=== PATIENT | male | born 1990 | race Caucasian/White ===

== ENCOUNTER → 2016-10-16 | Outpatient (CLI) | payer BC | LOC: MW.LAB 08:30 | PROVIDERS: ATTEND Internal Medicine | DX: N18.4 Chronic kidney disease, stage 4 (severe) (principal); E87.2 Acidosis; N11.9 Chronic tubulo-interstitial nephritis, unspecified; N13.9 Obstructive and reflux uropathy, unspecified | CPT/HCPCS: 36415; 80069; 85027 ==

== ENCOUNTER → 2016-12-11 | Outpatient (CLI) | payer BC | LOC: MW.LAB 09:18 | PROVIDERS: ATTEND Internal Medicine | DX: I12.0 Hypertensive chronic kidney disease with stage 5 chronic kidney disease or end stage renal disease (principal); N18.5 Chronic kidney disease, stage 5; E87.2 Acidosis; N25.81 Secondary hyperparathyroidism of renal origin; D63.1 Anemia in chronic kidney disease | CPT/HCPCS: 36415; 80069; 82310; 82652; 82728; 83550; 83735; 83970; 84550; 85025 ==

== ENCOUNTER 2017-10-04 16:39 | Observation (INO) | payer BC ==
[2017-10-04] MEDS ORDERED: Sodium Chloride 0.9% 10 ML Syringe FLUSH PRN (16:46)
[2017-10-04] MEDS ORDERED: Sodium Chloride 0.9% 2.5 ML Syringe FLUSH PRN (16:46)
[2017-10-04] MEDS ORDERED: Aspirin 81 MG Tab.Chew PO ONE (16:47)
[2017-10-04] MEDS ORDERED: Nitroglycerin 0.4 MG Tab.SL SL PRN (16:47)
--- NOTE | 2017-10-04 16:48 | EDM.PDOC ---
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 He became dizzy, lightheaded, short of breath and sweaty. Walked into the house from his shop approximately 120 yards away and had to stop 2 times to rest he was able to go inside and laid down on his bed for a few minutes. His pain then subsided and he walked back out into the shop to turn off lights in his chest pain recurred again. He came into the ED on his own complaining of chest pain that is now 2/ 10. Patient has history of kidney disease and is getting ready to start dialysis. does not have any known heart disease. Review of systems: As per history of present illness and below otherwise all systems reviewed and negative. Past medical history: As per history of present illness and as reviewed below otherwise noncontributory. Surgical history: As per history of present illness and as reviewed below otherwise noncontributory. Social history: No reported history of drug or alcohol abuse. Family history: As per history of present illness and as reviewed below otherwise noncontributory. Physical exam: General: Well developed, well nourished in NAD HEENT: Atraumatic, normocephalic, pupils reactive, negative for conjunctival pallor or scleral icterus, mucous membranes moist, throat clear, neck supple, nontender, trachea midline. Lungs: Clear to auscultation, breath sounds equal bilaterally, no wheezing or rhonchi chest nontender. Heart: S1S2, regular, negative for clicks, rubs, or JVD. Abdomen: Soft, nondistended, nontender. Negative for masses or hepatosplenomegaly. Negative for costovertebral tenderness. Pelvis: Stable nontender. Genitourinary: Deferred. Rectal: Deferred. Extremities: Atraumatic, negative for cords or calf pain. Neurovascular unremarkable. Neuro: Awake, alert, oriented. Cranial nerves II through XII unremarkable. Cerebellum unremarkable. Motor and sensory unremarkable throughout. Exam nonfocal. Diagnostics: []CBC mild anemia 05/26, chemistries shows stable BUN/creatinine of 60/4.8, troponin negative, chest x-ray and negative Therapeutics: []Aspirin given Impression: []Chest pain Plan: []Admit for rule out Definitive disposition and diagnosis as appropriate pending reevaluation and review of above. chest Pain Score (Numeric/FACES): 2 - Related Data Allergies Allergy/AdvReac Type Severity Reaction Status Date / Time maciel flavor Allergy Rash Verified 10/04/17 16:46 Penicillins Allergy Cannot Verified 10/04/17 16:46 Remember NUTS Allergy Rash Uncoded 10/04/17 16:46 Home Meds: Home Meds Sodium Bicarbonate 0 mg PO DAILY 07/07/15 [History] Past Medical History Other Musculoskeletal History: surgery on left index finger with tendon repair - Past Surgical History Other Male Surgeries/Procedures: hx of LEFT ureteral stent placement for obstruction of kidney Social & Family History - Family History Family Medical History: Noncontributory - Tobacco Use Smoking Status *Q: Unknown Ever Smoked Years of Tobacco use: 5 Packs/Tins Daily: 1 Second Hand Smoke Exposure: No - Alcohol Use Days Per Week of Alcohol Use: 1 - Recreational Drug Use Recreational Drug Use: No Drug Use in Last 12 Months: No ED ROS GENERAL - Review of Systems Review Of Systems: See Below (See history of present illness) ED EXAM, GENERAL - Physical Exam Exam: See Below (See history of present illness) Course - Vital Signs Last Recorded V/S: Last Vital Signs Temp 98.6 F 10/05/17 08:45 Pulse 58 L 10/05/17 08:45 Resp 16 10/05/17 08:45 BP 119/67 10/05/17 08:45 Pulse Ox 98 10/05/17 08:45 - Orders/Labs/Meds Orders: Active Orders 24 hr Category Date Time Status Chest 1V Frontal [CR] Stat Exams 10/04/17 16:46 Taken Saline Lock Insert [OM.PC] Stat Oth 10/04/17 16:46 Ordered Labs: Laboratory Tests 10/04/17 10/04/17 Range/Units 16:45 16:45 WBC 7.07 (4.0-11.0) K/uL RBC 3.36 L (4.50-5.90) M/uL Hgb 10.4 L (13.0-17.0) g/dL Hct 30.3 L (38.0-50.0) % MCV 90.2 (80.0-98.0) fL MCH 31.0 (27.0-32.0) pg MCHC 34.3 (31.0-37.0) g/dL RDW Std Deviation 42.0 (28.0-62.0) fl RDW Coeff of Jeb 13 (11.0-15.0) % Plt Count 204 (150-400) K/uL MPV 10.00 (7.40-12.00) fL Neut % (Auto) 65.2 (48.0-80.0) % Lymph % (Auto) 27.6 (16.0-40.0) % [place] % (Auto) 5.1 (0.0-15.0) % Eos % (Auto) 1.7 (0.0-7.0) % Baso % (Auto) 0.4 (0.0-1.5) % Neut # (Auto) 4.6 (1.4-5.7) K/uL Lymph # (Auto) 2.0 (0.6-2.4) K/uL [place] # (Auto) 0.4 (0.0-0.8) K/uL Eos # (Auto) 0.1 (0.0-0.7) K/uL Baso # (Auto) 0.0 (0.0-0.1) K/uL Nucleated RBC % 0.0 /100WBC Nucleated RBCs # 0 K/uL Sodium 141 (136-148) mmol/L Potassium 4.2 (3.5-5.1) mmol/L Chloride 111 H (98-107) mmol/L Carbon Dioxide 14.7 L (21.0-32.0) mmol/L BUN 60 H (7.0-18.0) mg/dL Creatinine 4.8 H (0.8-1.3) mg/dL Est Cr Clr Drug Dosing 24.29 mL/min Estimated GFR (MDRD) 14.9 ml/min Glucose 121 H (74-106) mg/dL Calcium 8.1 L (8.5-10.1) mg/dL Magnesium 0.9 L (1.5-2.0) mg/dL Total Bilirubin 0.2 (0.2-1.0) mg/dL AST 23 (15-37) IU/L ALT 26 (14-63) IU/L Alkaline Phosphatase 111 (46-116) U/L Troponin I < 0.050 (0.000-0.056) ng/mL Total Protein 7.2 (6.4-8.2) g/dL Albumin 4.0 (3.4-5.0) g/dL Globulin 3.2 (2.0-3.5) g/dL Albumin/Globulin Ratio 1.3 (1.3-2.8) Meds: Medications Discontinued Medications Generic Name Dose Route Start Last Admin Trade Name Freq PRN Reason Stop Dose Admin Acetaminophen 650 mg 10/04/17 19:18 Tylenol PO Q4H PRN Pain (Mild 1-3)/fever Aspirin 324 mg 10/04/17 16:47 10/04/17 16:57 Aspirin PO 10/04/17 16:48 324 mg ONETIME ONE Administration Calcium Carbonate/Glycine 1,000 mg 10/04/17 19:18 10/04/17 19:52 Tums PO 10/04/17 19:19 1,000 mg ONETIME ONE Administration Calcium Carbonate/Glycine 1,000 mg 10/05/17 09:44 10/05/17 10:59 Tums PO 10/05/17 09:45 1,000 mg ONETIME ONE Administration Heparin Sodium (Porcine) 5,000 units 10/04/17 20:00 10/05/17 07:49 Heparin Sodium SUBCUT 5,000 units Q12H DARREL Administration Magnesium Sulfate 4 gm/ Premix 100 mls @ 50 mls/hr 10/04/17 19:18 10/04/17 19 :46 IV 10/04/17 21:17 50 mls/hr ONETIME ONE Administration Morphine Sulfate 2 mg 10/04/17 19:18 Morphine IVPUSH 10/05/17 19:20 Q2H PRN Pain (severe 7-10) Nitroglycerin 0.4 mg 10/04/17 16:47 Nitrostat SL Q5M PRN Chest Pain Ondansetron HCl 4 mg 10/04/17 19:18 Zofran Odt PO Q4H PRN nausea, able to take PO Ondansetron HCl 4 mg 10/04/17 19:18 Zofran IVPUSH Q4H PRN Nausea Sodium Chloride 10 ml 03/10/18 16:46 Saline Flush FLUSH ASDIRECTED PRN Keep Vein Open Sodium Chloride 2.5 ml 10/04/17 16:46 Saline Flush FLUSH ASDIRECTED PRN Keep Vein Open Temazepam 15 mg 10/04/17 19:18 Restoril PO BEDTIME PRN Sleep Departure - Departure Time of Disposition: 19:30 Disposition: Refer to Observation Condition: Good Clinical Impression: Chest pain - My Orders Last 24 Hours: My Active Orders 10/04/17 16:46 Chest 1V Frontal [CR] Stat Saline Lock Insert [OM.PC] Stat - Assessment/Plan Last 24 Hours: My Active Orders 10/04/17 16:46 Chest 1V Frontal [CR] Stat Saline Lock Insert [OM.PC] Stat
[2017-10-04 17:43] LABS: CHLORIDE,CL 111 mmol/L (98-107); SODIUM,NA 141 mmol/L (136-148)
--- NOTE | 2017-10-04 18:55 | PCM.HP ---
H&P History of Present Illness - General Date of Service: 10/04/17 Admit Problem/Dx: Chest Pain Source of Information: Patient History Limitations: Reports: No Limitations - History of Present Illness Initial Comments - Free Text/Narative: 26-year-old male presenting to emergency department with a chief complaint of chest pain and shortness of breath approximately one and half hours prior to arrival in ED with past medical history of stage IV CKD. Patient states that at around 1540 today while working in his shop he suddenly had sharp burning substernal chest pain 6 out of 10 with associated diaphoresis and shortness of breath. He denies any radiation or associated nausea and vomiting. States the pain lasted approximately 5 minutes. States that he then went out of his shop and walk to his house approximately 120 yards away, he had to stop approximately 2 times secondary to weakness. He then was able to lay down in bed but decided to go back to the shop to turn off lights. At this time while he was exerting himself the chest pain recurred. It was once again sharp, burning, with associated shortness of breath and lasted approximately 2 minutes. It was relieved by rest. Patient denies any previous history of cardiopulmonary disease. Patient does use chewing tobacco approximately 1 can every 2 days. He does have stage IV CKD and is seen by Dr. Aguilar, roper operator in [place]. He is getting ready to start dialysis and is also being prepared for kidney transplant. They do have a donor which is his mother's sister. 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 Emergency department: CBC, initial troponin, and CXR unremarkable. EKG showed sinus tachycardia at 100 but no signs of acute ischemia. CMP revealed a BUN of 60 and a creatinine of 4.8. Creatinine on previous visits 06/1517 was 4.4 and on 06/13/17 was 4.9. GFR was 24. Hypocalcemia of 8.1 and hypomagnesemia of 0.9. He was given ASA 324 mg by mouth and nitroglycerin 0.4 sublingual. Patient is admitted for chest pain. chest Pain Score (Numeric/FACES): 2 - Related Data Allergies/Adverse Reactions: Allergies Allergy/AdvReac Type Severity Reaction Status Date / Time maciel flavor Allergy Rash Verified 10/04/17 16:46 Penicillins Allergy Cannot Verified 10/04/17 16:46 Remember NUTS Allergy Rash Uncoded 10/04/17 16:46 Home Medications: Home Meds Sodium Bicarbonate 0 mg PO DAILY 07/07/15 [History] Past Medical History Genitourinary History: Reports: Renal Disease Other Musculoskeletal History: surgery on left index finger with tendon repair - Past Surgical History Other Male Surgeries/Procedures: hx of LEFT ureteral stent placement for obstruction of kidney Social & Family History - Family History Family Medical History: Noncontributory - Tobacco Use Smoking Status *Q: Unknown Ever Smoked Years of Tobacco use: 5 Packs/Tins Daily: 1 Second Hand Smoke Exposure: No - Alcohol Use Days Per Week of Alcohol Use: 1 - Recreational Drug Use Recreational Drug Use: No Drug Use in Last 12 Months: No H&P Review of Systems - Review of Systems: Review Of Systems: See Below General: Reports: Weakness. Denies: Fever, Chills, Malaise, Fatigue HEENT: Denies: Dysphasia, Headaches, Sore Throat Pulmonary: Reports: Shortness of Breath. Denies: Wheezing, Cough, Sputum Cardiovascular: Reports: Chest Pain. Denies: Palpitations, Syncope Gastrointestinal: Denies: Abdominal Pain, Black Stool, Bloody Stool, Diarrhea, Nausea, Vomiting Genitourinary: Denies: Dysuria, Hematuria Musculoskeletal: Denies: Neck Pain, Leg Pain Skin: Denies: Cyanosis Psychiatric: Denies: Confusion Neurological: Reports: Dizziness. Denies: Confusion, Headache, Numbness, Paresthesia Hematologic/Lymphatic: Denies: Anemia Immunologic: Denies: Anaphylaxis Exam - Exam Exam: See Below - Vital Signs Vital Signs: Last Vital Signs Temp 98.3 F 10/04/17 16:46 Pulse 98 10/04/17 16:46 Resp 18 10/04/17 16:46 BP 152/90 H 10/04/17 16:46 Pulse Ox 97 10/04/17 16:46 Weight: 83.915 kg - Exam Quality Assessment: DVT Prophylaxis General: Alert, Oriented, Cooperative HEENT: Conjunctiva Clear, EACs Clear, EOMI, Hearing Intact, Mucosa Moist & [place] , Nares Patent, Normal Nasal Septum, Posterior Pharynx Clear, PERRLA Neck: Supple, Trachea Midline, 2 Lungs: Clear to Auscultation, Normal Respiratory Effort Cardiovascular: Regular Rate, Regular Rhythm, Normal S1, Normal S2, Systolic Murmur GI/Abdominal Exam: Normal Bowel Sounds, Soft, Non-Tender, No Organomegaly, No Distention (Male) Exam: Deferred Rectal (Males) Exam: Deferred Back Exam: Normal Inspection Extremities: Normal Inspection, Non-Tender, No Pedal Edema, Normal Capillary Refill Peripheral Pulses: 2+: Radial (L), Radial (R), Posterior Tibial (L), Posterior Tibial (R), Dorsalis Pedis (L), Dorsalis Pedis (R) Skin: Warm, Dry, Intact Neurological: Cranial Nerves Intact Neuro Extensive - Mental Status: Alert, Oriented x3, Normal Mood/Affect, Normal Cognition Neuro Extensive - Motor, Sensory, Reflexes: CN II-XII Intact Psychiatric: Alert, Normal Affect, Normal Mood - Patient Data Result Diagrams: 10/04/17 16:45 10/04/17 16:45 *Q Meaningful Use (ADM) - VTE *Q VTE Criteria *Q: - Stroke *Q Stroke Criteria *Q: - AMI *Q AMI Criteria *Q: - Problem List (1) Chest pain on exertion SNOMED Code(s): 14899711 ICD Code: R07.9 - CHEST PAIN, UNSPECIFIED Status: Acute Priority: High Current Visit: Yes (2) CKD (chronic kidney disease) stage 4, GFR 15-29 ml/min SNOMED Code(s): 652784413 ICD Code: N18.4 - CHRONIC KIDNEY DISEASE, STAGE 4 (SEVERE) Status: Chronic Priority: Medium Current Visit: Yes (3) Hypomagnesemia SNOMED Code(s): 260041439 ICD Code: E83.42 - HYPOMAGNESEMIA Status: Acute Priority: High Current Visit: Yes (4) Hypocalcemia SNOMED Code(s): 8407905 ICD Code: E83.51 - HYPOCALCEMIA Status: Acute Priority: Medium Current Visit: Yes Problem List Initiated/Reviewed/Updated: Yes Orders Last 24hrs: Medication Orders Nitroglycerin (Nitrostat) 0.4 mg SL Q5M PRN PRN Reason: Chest Pain Sodium Chloride (Saline Flush) 10 ml FLUSH ASDIRECTED PRN PRN Reason: Keep Vein Open Sodium Chloride (Saline Flush) 2.5 ml FLUSH ASDIRECTED PRN PRN Reason: Keep Vein Open Assessment/Plan Comment:: 26-year-old male admitted 10/04/17 for chest pain and found to have hypomagnesemia and hypocalcemia with past medical history of stage IV chronic kidney disease. Chest pain: Secondary the patient's history of CKD he has increased risk factors even with his younger age. We will trend troponins and place on telemetry. Secondary to above most likely should follow with cardiology for outpatient stress test. Hypomagnesemia: Most likely related to his chronic kidney disease. Will replace and monitor. 4 mg IV mag now. Hypocalcemia: Most likely related to his chronic kidney disease. Will replace and monitor. Chronic kidney disease stage IV: Patient is planning for dialysis and also is crossmatched for a donor at this time. He sees Dr. Aguilar, roper operator, in [place]. His creatinine today was 4.8 which is similar to his previous findings of 4.4 on 07/11/17 and 4.9 on 06/13/17. GFR today was 24. Will continue to monitor closely for worsening function. VTE: Heparin, SCD Dispo: 1-2 days pending.
[2017-10-04] MEDS ORDERED: Morphine 2 MG/ML Syringe IVPUSH PRN (19:18)
[2017-10-04] MEDS ORDERED: Ondansetron 4 MG Tab.DIS PO PRN (19:18)
[2017-10-04] MEDS ORDERED: Magnesium Sulfate/Water 4 GM in Premix Bag 1 BAG IV ONE (19:18)
[2017-10-04] MEDS ORDERED: Temazepam 15 MG Cap PO PRN (19:18)
[2017-10-04] MEDS ORDERED: Calcium Carbonate 500 MG Tab.Chew PO ONE (19:18)
[2017-10-04] MEDS ORDERED: Ondansetron 4 MG/2 ML SDV IVPUSH PRN (19:18)
[2017-10-04] MEDS ORDERED: Acetaminophen 325 MG Tab PO PRN (19:18)
[2017-10-04] MEDS: Heparin Sodium 5,000 Units/ML Vial SUBCUT SCH (19:46)
[2017-10-05] MEDS: Heparin Sodium 5,000 Units/ML Vial SUBCUT SCH (07:49)
--- NOTE | 2017-10-05 08:10 | PCM.DCSUM1 ---
Discharge Summary - Hospital Course HPI Initial Comments: 26-year-old male admitted 10/04/17 for chest pain and found to have hypomagnesemia and hypocalcemia with past medical history of stage IV chronic kidney disease. Brief History: Patient stated that at around 1540 on day of admission, while working in his shop, he suddenly had sharp burning substernal chest pain 6 out of 10 with associated diaphoresis and shortness of breath. He denied any radiation or associated nausea and vomiting. Stated the pain lasted approximately 5 minutes and was relieved with rest. Stated that he then went out of his shop and walk to his house approximately 120 yards away, he had to stop approximately 2 times secondary to weakness/fatigue. He then was able to lay down in bed but decided to go back to the shop to turn off lights. At that time, while he was exerting himself, the chest pain recurred. It was once again sharp, burning, with associated shortness of breath and lasted approximately 2 minutes. It was relieved by rest. Patient had been feeling his normal self up to this chest pain and denied any recent cold, cough, nausea, diarrhea, sore throat, abdominal pain, leg pain or swelling. Patient denied any previous history of cardiopulmonary disease. Patient does use chewing tobacco approximately 1 can every 2 days. He does have stage IV CKD and is seen by Dr. Aguilar, reservations clerk in [place]. He is getting ready to start dialysis and is also being prepared for kidney transplant. They do have a donor which is his mother's sister. 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 Emergency department: CBC, initial troponin, and CXR unremarkable. EKG showed sinus tachycardia at 100 but no signs of acute ischemia. CMP revealed a BUN of 60 and a creatinine of 4.8. Creatinine on previous visits 07/11/17 was 4.4 and on 06/13/17 was 4.9. GFR was 24. Hypocalcemia of 8.1 and hypomagnesemia of 0.9. He was given ASA 324 mg by mouth and nitroglycerin 0.4 sublingual. Patient was admitted for chest pain. - Discharge Data Discharge Date: 10/05/17 Discharge Disposition: Home, Self-Care 01 Condition: Good - Discharge Diagnosis/Problem(s) (1) Chest pain on exertion SNOMED Code(s): 61877769 ICD Code: R07.9 - CHEST PAIN, UNSPECIFIED Status: Acute Priority: High (2) CKD (chronic kidney disease) stage 4, GFR 15-29 ml/min SNOMED Code(s): 249101548 ICD Code: N18.4 - CHRONIC KIDNEY DISEASE, STAGE 4 (SEVERE) Status: Chronic Priority: Medium (3) Hypomagnesemia SNOMED Code(s): 704257320 ICD Code: E83.42 - HYPOMAGNESEMIA Status: Acute Priority: High (4) Hypocalcemia SNOMED Code(s): 7217713 ICD Code: E83.51 - HYPOCALCEMIA Status: Acute Priority: Medium - Patient Instructions Diet: Renal Diet Activity: Rest and Relax Today Driving: Do Not Drive Showering/Bathing: May Shower Notify Provider of: Fever, Increased Pain, Nausea and/or Vomiting - Discharge Plan Home Medications: Home Meds Sodium Bicarbonate 0 mg PO DAILY 07/07/15 [History] Patient Handouts: Hypomagnesemia, Hypocalcemia, Adult, Nonspecific Chest Pain, [id number] Referrals: Izzy Hernandez MD [Physician] - (Will call you for your appointment with Dr. Hernandez.) PCP,None [Primary Care Provider] - (Please follow-up with your PCP in 1 week.) - Discharge Summary/Plan Comment DC Time >30 min.: Yes Discharge Summary/Plan Comment: 26-year-old male admitted 10/04/17 for chest pain and found to have hypomagnesemia and hypocalcemia with past medical history of stage IV chronic kidney disease. Patient stated that at around 1540 on day of admission, while working in his shop, he suddenly had sharp burning substernal chest pain 6 out of 10 with associated diaphoresis and shortness of breath. He denied any radiation or associated nausea and vomiting. Stated the pain lasted approximately 5 minutes and was relieved with rest. Stated that he then went out of his shop and walk to his house approximately 120 yards away, he had to stop approximately 2 times secondary to weakness/fatigue. He then was able to lay down in bed but decided to go back to the shop to turn off lights. At that time, while he was exerting himself, the chest pain recurred. It was once again sharp, burning, with associated shortness of breath and lasted approximately 2 minutes. It was relieved by rest. Patient had been feeling his normal self up to this chest pain and denied any recent cold, cough, nausea, diarrhea, sore throat, abdominal pain, leg pain or swelling. Patient denied any previous history of cardiopulmonary disease. Patient does use chewing tobacco approximately 1 can every 2 days. He does have stage IV CKD and is seen by Dr. Aguilar, reservations clerk in [place]. He is getting ready to start dialysis and is also being prepared for kidney transplant. They do have a donor which is his mother's sister. 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 Emergency department: CBC, initial troponin, and CXR unremarkable. EKG showed sinus tachycardia at 100 but no signs of acute ischemia. CMP revealed a BUN of 60 and a creatinine of 4.8. Creatinine on previous visits 07/11/17 was 4.4 and on 06/13/17 was 4.9. GFR was 24. Hypocalcemia of 8.1 and hypomagnesemia of 0.9. He was given ASA 324 mg by mouth and nitroglycerin 0.4 sublingual. Patient was admitted for chest pain. His hypocalcemia and hypomagnesemia was replaced and most likely due to his stage IV chronic kidney disease. He was observed on telemetry overnight and serial troponins were negative. There was no return of his chest pain. Secondary to the patient's increased risk factors of stage IV chronic kidney disease which is thought to be due to congenital etiology patient was advised to follow-up with cardiology first possible stress test. He was discharged in good condition with follow-ups with primary care physician Dr. Escobedo as well as cane flume watcher Dr. Choi. He was instructed return to emergency department if he had any new or worsening symptoms. - General Info Date of Service: 10/05/17 Admission Dx/Problem (Free Text: Chest Pain Subjective Update: Doing well. No return of chest pain. Denies any chest pain, palpitations, shortness of breath, syncopal episodes, focal neurologic episodes. Would like to be discharged today. I talked to him about follow-up with primary care physician Dr. Escobedo as well as our cane flume watcher. He is in agreement. Functional Status: Reports: Pain Controlled, Tolerating Diet, Ambulating, Urinating - Review of Systems General: Denies: Fever, Weakness, Fatigue HEENT: Denies: Headaches, Visual Changes Pulmonary: Denies: Shortness of Breath, Cough, Hemoptysis Cardiovascular: Denies: Chest Pain, Palpitations, Edema Gastrointestinal: Denies: Abdominal Pain, Diarrhea, Nausea, Vomiting Genitourinary: Denies: Dysuria, Hematuria Musculoskeletal: Denies: Neck Pain, Leg Pain Skin: Denies: Cyanosis Neurological: Denies: Confusion, Dizziness, Headache Psychiatric: Denies: Confusion, Depression - Patient Data Vitals - Most Recent: Last Vital Signs Temp 97 F 10/05/17 04:20 Pulse 78 10/05/17 04:20 Resp 16 10/05/17 04:20 BP 110/62 10/05/17 04:20 Pulse Ox 98 10/05/17 04:20 Weight - Most Recent: 82.962 kg I&O - Last 24 hours: Intake & Output 10/04/17 10/05/17 10/05/17 21:59 06:59 14:59 Intake Total Output Total Balance Lab Results - Last 24 hrs: Laboratory Results - last 24 hr 10/05/17 10/05/17 10/05/17 Range/Units 00:28 07:32 07:32 WBC 7.31 (4.0-11.0) K/uL RBC 3.15 L (4.50-5.90) M/uL Hgb 9.3 L (13.0-17.0) g/dL Hct 28.3 L (38.0-50.0) % MCV 89.8 (80.0-98.0) fL MCH 29.5 (27.0-32.0) pg MCHC 32.9 (31.0-37.0) g/dL RDW Std Deviation 42.2 (28.0-62.0) fl RDW Coeff of Jeb 13 (11.0-15.0) % Plt Count 206 (150-400) K/uL MPV 9.60 (7.40-12.00) fL Neut % (Auto) 57.7 (48.0-80.0) % Lymph % (Auto) 35.2 (16.0-40.0) % Grand % (Auto) 4.9 (0.0-15.0) % Eos % (Auto) 1.8 (0.0-7.0) % Baso % (Auto) 0.4 (0.0-1.5) % Neut # (Auto) 4.2 (1.4-5.7) K/uL Lymph # (Auto) 2.6 H (0.6-2.4) K/uL Grand # (Auto) 0.4 (0.0-0.8) K/uL Eos # (Auto) 0.1 (0.0-0.7) K/uL Baso # (Auto) 0.0 (0.0-0.1) K/uL Nucleated RBC % 0.0 /100WBC Nucleated RBCs # 0 K/uL Sodium 142 (136-148) mmol/L Potassium 4.6 (3.5-5.1) mmol/L Chloride 111 H (98-107) mmol/L Carbon Dioxide 17.8 L (21.0-32.0) mmol/L BUN 58 H (7.0-18.0) mg/dL Creatinine 4.8 H (0.8-1.3) mg/dL Est Cr Clr Drug Dosing 24.29 mL/min Estimated GFR (MDRD) 14.9 ml/min Glucose 109 H (74-106) mg/dL Calcium 8.4 L (8.5-10.1) mg/dL Phosphorus 5.5 H (2.6-4.7) mg/dL Magnesium 2.0 (1.5-2.0) mg/dL Troponin I < 0.050 (0.000-0.056) ng/mL 10/05/17 Range/Units 07:32 WBC (4.0-11.0) K/uL RBC (4.50-5.90) M/uL Hgb (13.0-17.0) g/dL Hct (38.0-50.0) % MCV (80.0-98.0) fL MCH (27.0-32.0) pg MCHC (31.0-37.0) g/dL RDW Std Deviation (28.0-62.0) fl RDW Coeff of Jeb (11.0-15.0) % Plt Count (150-400) K/uL MPV (7.40-12.00) fL Neut % (Auto) (48.0-80.0) % Lymph % (Auto) (16.0-40.0) % Grand % (Auto) (0.0-15.0) % Eos % (Auto) (0.0-7.0) % Baso % (Auto) (0.0-1.5) % Neut # (Auto) (1.4-5.7) K/uL Lymph # (Auto) (0.6-2.4) K/uL Grand # (Auto) (0.0-0.8) K/uL Eos # (Auto) (0.0-0.7) K/uL Baso # (Auto) (0.0-0.1) K/uL Nucleated RBC % /100WBC Nucleated RBCs # K/uL Sodium (136-148) mmol/L Potassium (3.5-5.1) mmol/L Chloride (98-107) mmol/L Carbon Dioxide (21.0-32.0) mmol/L BUN (7.0-18.0) mg/dL Creatinine (0.8-1.3) mg/dL Est Cr Clr Drug Dosing mL/min Estimated GFR (MDRD) ml/min Glucose (74-106) mg/dL Calcium (8.5-10.1) mg/dL Phosphorus (2.6-4.7) mg/dL Magnesium (1.5-2.0) mg/dL Troponin I < 0.050 (0.000-0.056) ng/mL Med Orders - Current: Current Medications Acetaminophen (Tylenol) 650 mg PO Q4H PRN PRN Reason: Pain (Mild 1-3)/fever Heparin Sodium (Porcine) (Heparin Sodium) 5,000 units SUBCUT Q12H DARREL Last Admin: 10/05/17 07:49 Dose: 5,000 units Morphine Sulfate (Morphine) 2 mg IVPUSH Q2H PRN PRN Reason: Pain (severe 7-10) Stop: 10/05/17 19:20 Nitroglycerin (Nitrostat) 0.4 mg SL Q5M PRN PRN Reason: Chest Pain Ondansetron HCl (Zofran Odt) 4 mg PO Q4H PRN PRN Reason: nausea, able to take PO Ondansetron HCl (Zofran) 4 mg IVPUSH Q4H PRN PRN Reason: Nausea Sodium Chloride (Saline Flush) 10 ml FLUSH ASDIRECTED PRN PRN Reason: Keep Vein Open Sodium Chloride (Saline Flush) 2.5 ml FLUSH ASDIRECTED PRN PRN Reason: Keep Vein Open Temazepam (Restoril) 15 mg PO BEDTIME PRN PRN Reason: Sleep Discontinued Medications Aspirin (Aspirin) 324 mg PO ONETIME ONE Stop: 10/04/17 16:48 Last Admin: 10/04/17 16:57 Dose: 324 mg Calcium Carbonate/Glycine (Tums) 1,000 mg PO ONETIME ONE Stop: 10/04/17 19:19 Last Admin: 10/04/17 19:52 Dose: 1,000 mg Magnesium Sulfate 4 gm/ Premix 100 mls @ 50 mls/hr IV ONETIME ONE Stop: 10/04/17 21:17 Last Admin: 10/04/17 19:46 Dose: 50 mls/hr - Exam Quality Assessment: Reports: DVT Prophylaxis General: Reports: Alert, Oriented, Cooperative, No Acute Distress HEENT: Reports: Pupils Equal, Pupils Reactive, EOMI, Mucous Membr. Moist/[place] Neck: Reports: Supple, Trachea Midline Lungs: Reports: Clear to Auscultation, Normal Respiratory Effort Cardiovascular: Reports: Regular Rate, Regular Rhythm GI/Abdominal Exam: Normal Bowel Sounds, Soft, Non-Tender, No Organomegaly, No Distention (Male) Exam: Deferred Rectal (Males) Exam: Deferred Back Exam: Reports: Normal Inspection Extremities: Normal Inspection, Non-Tender, No Pedal Edema, Normal Capillary Refill Skin: Reports: Warm, Dry, Intact Neurological: Reports: No New Focal Deficit Psy/Mental Status: Reports: Alert, Normal Affect, Normal Mood *Q Meaningful Use (DIS) - VTE *Q VTE Criteria *Q: - Stroke *Q Stroke Criteria *Q: - AMI *Q AMI Criteria *Q:
[2017-10-05 08:45] VITALS: BP 119/67
[2017-10-05] MEDS ORDERED: Calcium Carbonate 500 MG Tab.Chew PO ONE (09:44)
--- NOTE | 2017-10-06 11:30 | CR ---
EXAM DATE: 10/04/17 PATIENT'S AGE: 26 Patient: POLO CAMACHO Facility: [place], [place] Site . Site : 1990 Study: XRay Chest [id number]/10/2018 5:04:14 PM Ordering Physician: Doctor Mathis Final Report: HISTORY: Chest pain. TECHNIQUE: One view of the chest. COMPARISON: No prior. FINDINGS: Cardiac size and pulmonary vasculature are within normal limits. There is no acute lung infiltrate or pulmonary edema. No pneumothorax or pleural effusion. No acute bony abnormality. IMPRESSION: No acute disease. Dictated by Roe Espitia MD @ 10/04/2017 5:07:49 PM Dictated by: Roe Espitia MD @ 10/04/2017 17:07:55 (Electronic Signature) Report Signed by Proxy. MAR[facility] FARERI CHILDREN'S HOSPITALJimbo
== END 2017-10-05 11:20 | disposition home or self-care (01) ==
LOC: MW.ED 16:39 → MW.MS 18:03 → UNDODISOB 10-05 11:20
PROVIDERS: ADMIT Family Medicine; ATTEND Family Medicine
DX: R07.2 Precordial pain (principal); N18.4 Chronic kidney disease, stage 4 (severe); E83.42 Hypomagnesemia; E83.51 Hypocalcemia; Z91.018 Allergy to other foods; Z88.0 Allergy status to penicillin; Z79.899 Other long term (current) drug therapy
CPT/HCPCS: 36415; 71045; 80048; 80053; 83735; 84100; 84484; 85025; 93005; 96365; 96366; 96372; 99285; A9270; G0378; J1644; J3475; 99284

== ENCOUNTER 2023-05-30 11:50 | Day surgery (SDC) | payer BC, MEDICARE ==
[~2023-05-30 11:50] MED LIST: Lactated Ringers 1,000 ML IV SCH; Propofol 200 MG/20 ML SDV ONE
[2023-05-30] MEDS ORDERED: fentaNYL 100 MCG/2 ML SDV ONE (14:18)
[2023-05-30] MEDS ORDERED: Phenylephrine HCl 0.5 MG/5 ML AMP ONE (14:24)
[2023-05-30] MEDS ORDERED: ePHEDrine 50 MG/ML SDV ONE (14:45)
[2023-05-30 15:34] VITALS: BP 121/64; PULSE 102
== END 2023-05-30 15:25 | disposition home or self-care (01) ==
LOC: MW.SDS 11:50
PROVIDERS: ATTEND Surgery
DX: K63.5 Polyp of colon (principal); K64.8 Other hemorrhoids; I12.9 Hypertensive chronic kidney disease with stage 1 through stage 4 chronic kidney disease, or unspecified chronic kidney disease; N18.4 Chronic kidney disease, stage 4 (severe); G89.29 Other chronic pain; R10.11 Right upper quadrant pain; Z88.0 Allergy status to penicillin; Z91.018 Allergy to other foods; Z79.899 Other long term (current) drug therapy
CPT/HCPCS: 45380; J2371; J2704; J3010; J7120; 00811; J3490